=== PATIENT | male | born 1970 | race Caucasian/White ===

== ENCOUNTER 2017-05-10 13:59 | Emergency (ER) | payer OTHER ==
[~2017-05-10] VITALS: Ht 180.3 cm; Wt 96.5 kg
[2017-05-10 15:35] LABS: HEMATOCRIT 45.3 % (38.0-50.0); HEMOGLOBIN 15.4 G/DL (12.5-16.6); MCH 30.2 PG (29.0-34.0); MCV 88.8 FL (86-99); PLATELET COUNT 250 K/uL (156-360); RBC DIS.WIDTH-SD 42.7 % (39-53)
[2017-05-10 15:45] LABS: ALBUMIN 4.1 g/dL (3.2-4.8); CHLORIDE 108 mEq/L (99-109); POTASSIUM 3.8 mEq/L (3.7-5.4); SODIUM 142 mEq/L (136-147)
[2017-05-10 15:47] LABS: GLUCOSE 101 mg/dL (70-99); TOTAL PROTEIN 7.3 g/dL (6.4-8.3)
[2017-05-10 15:49] LABS: TOTAL BILIRUBIN 0.5 mg/dL (0.0-1.0)
[2017-05-10 15:51] LABS: ALKALINE PHOSPHATASE 66 IU/L (3-129); GFR ESTIMATE (CALCULATED) > 59 mL/min/ (58.99-99999)
[2017-05-10 15:52] LABS: UREA NITROGEN (BUN) 17 mg/dL (9-23)
[2017-05-10 15:53] LABS: AST (GOT) 16 IU/L (2-34)
[2017-05-10 15:54] LABS: ALT (GPT) 18 IU/L (3-49)
[2017-05-10 15:58] LABS: TROP-I INTERPRETATION NEGATIVE; TROPONIN-I < 0.01 ng/mL (0.0-0.30)
[2017-05-10] MEDS ORDERED: LISINOPRIL5 MG PO (16:30)
[2017-05-10 16:38] VITALS: BP 163/111
== END 2017-05-10 16:39 | disposition home or self-care (01) ==
LOC: EME 13:59
PROVIDERS: Nurse Practitioner Family
DX: R03.0 Elevated blood-pressure reading, without diagnosis of hypertension (principal); J02.9 Acute pharyngitis, unspecified; R53.1 Weakness
CPT/HCPCS: 80053; 84484; 85027; 93005; 99281; 99283